=== PATIENT | female | born 1960 | race Caucasian/White ===

== ENCOUNTER 2017-08-27 13:25 | Outpatient (CLI) | payer OTHER | END 2017-08-27 13:26 | disposition home or self-care (01) | LOC: BICRAD 13:25 | PROVIDERS: ATTEND Family Medicine | DX: J44.9 Chronic obstructive pulmonary disease, unspecified (principal); R91.8 Other nonspecific abnormal finding of lung field | CPT/HCPCS: 71046 ==

== ENCOUNTER 2017-12-20 09:09 | Outpatient (CLI) | payer OTHER | END 2017-12-20 09:10 | disposition home or self-care (01) | LOC: BICRAD 09:09 | PROVIDERS: ATTEND Family Medicine | DX: J44.9 Chronic obstructive pulmonary disease, unspecified (principal) | CPT/HCPCS: 71046 ==

== ENCOUNTER 2018-02-14 12:53 | Outpatient (CLI) | payer OTHER ==
--- NOTE | 2018-02-14 13:29 | RAD ---
FRONTAL AND LATERAL IMAGING OF THE CHEST: Date: 02-14-18 Comparison: None. History: Shortness of breath. FINDINGS: The lungs are hyperinflated. There is increased linear interstitial density bilaterally. There is no pneumothorax or pleural fluid and no focal consolidation or alveolar edema. There is a round density measuring 1.5 cm projecting over the lateral aspect of the 11th rib on the r ight. This could represent a nodule within the right lung base or could represent a high density lesi on within the upper abdomen. Recommend CT examination for further assessment. IMPRESSION: 1. Findings suggesting a 1.5 cm round nodular density in the right lung base for which CT is advised. 2. Increased linear interstitial density with pulmonary hyperinflation, suggesting COPD. Code T POS: GLORIA
== END 2018-02-14 12:54 | disposition home or self-care (01) ==
LOC: RAD 12:53
PROVIDERS: ATTEND Internal Medicine Critical Care Medicine
DX: R06.00 Dyspnea, unspecified (principal)
CPT/HCPCS: 71046

== ENCOUNTER 2018-03-19 08:55 | Outpatient (CLI) | payer OTHER ==
--- NOTE | 2018-03-20 15:00 | PFT ---
PATIENT HISTORY: HEIGHT: 63 IN WEIGHT:120 SMOKER: NO HOW LON YRS PACKS PER DAY 1 PRODUCTIVE COUGH: LUNG DISEASE: PHYSICIAN INTERPRETATION FINAL REPORT: There is very severe reduction in expiratory flows and vital capacity without significant improvement after bronchodilator therapy. Total lung capacity is increased. RV is hyperinflated. TLC was hyperexpanded. Gas transfer is at lower limit of normal. IMPRESSION: 1. Obstructive ventilatory impairment. 2. Borderline diffusing capacity. Bleach Boiler Filler: ISHMAEL Hand Quilter: ISHMAEL GRAMAJO
== END 2018-03-19 08:56 | disposition home or self-care (01) ==
LOC: CP 08:55
PROVIDERS: ATTEND Internal Medicine Critical Care Medicine
DX: J44.9 Chronic obstructive pulmonary disease, unspecified (principal)
CPT/HCPCS: 94060; 94727; 94729

== ENCOUNTER 2018-11-19 13:30 | Outpatient (CLI) | payer OTHER, BC ==
--- NOTE | 2018-11-19 13:44 | RAD ---
F2 views chest. HISTORY: Dyspnea. PA and lateral views of the chest was obtained on 11/19/2018. Comparison made to previous exam from 01/19. A small granuloma seen in the right lung base. Areas of emphysematous changes seen in the right upper lobe. No evidence of acute intrathoracic abnormality seen. No evidence of effusions, pneumonia or pneumotho rax seen. IMPRESSION: stable 2 views chest. No evidence of acute intrathoracic abnormalities seen.
== END 2018-11-19 13:31 | disposition home or self-care (01) ==
LOC: RAD 13:30
PROVIDERS: ATTEND Internal Medicine Critical Care Medicine
DX: R06.00 Dyspnea, unspecified (principal)
CPT/HCPCS: 71046

== ENCOUNTER 2019-04-02 08:07 | Outpatient (CLI) | payer OTHER, BC ==
--- NOTE | 2019-04-02 08:25 | RAD ---
EXAM: Two views chest PROVIDED CLINICAL HISTORY: Dyspnea COMPARISON: 11/19/2018 FINDINGS: Cardiac silhouette and pulmonary vasculature are within normal limits. The lungs are hyperinflated w ith emphysematous changes noted greater on the right. Increased linear interstitial densities are seen bilaterally suggesting mild chronic lung changes. No consolidation or pleural fluid is identifie d. There is was thought to be a calcified granuloma overlying the right lung base which is stable. There is been no significant interval change compared to prior exam. IMPRESSION: 1. Chronic lung changes with evidence of COPD. 2. No acute cardiopulmonary process..
== END 2019-04-02 08:08 | disposition home or self-care (01) ==
LOC: RAD 08:07
PROVIDERS: ATTEND Internal Medicine Critical Care Medicine
DX: R06.00 Dyspnea, unspecified (principal); J44.9 Chronic obstructive pulmonary disease, unspecified
CPT/HCPCS: 71046

== ENCOUNTER 2019-10-28 09:23 | Outpatient (CLI) | payer BC, OTHER ==
--- NOTE | 2019-10-28 09:39 | RAD ---
EXAM: Chest PA and lateral: HISTORY: Dyspnea COMPARISON: 04/02/2019 FINDINGS: Heart: Normal cardiac silhouette Aorta: Atherosclerosis of the aortic knob Pulmonary vessels: Normal Costophrenic angles: Costophrenic angles are clear. Lungs: Hyperinflation. No masses or consolidation. Pneumothorax: No pneumothorax Osseous structures: Chronic changes along the superior inferior endplate of the T9 vertebral body. IMPRESSION: No acute cardiopulmonary process.
== END 2019-10-28 09:24 | disposition home or self-care (01) ==
LOC: RAD 09:23
PROVIDERS: ATTEND Internal Medicine Critical Care Medicine
DX: R06.00 Dyspnea, unspecified (principal)
CPT/HCPCS: 71046

== ENCOUNTER 2021-02-02 10:53 | Outpatient (CLI) | payer BC, OTHER | END 2021-02-02 10:54 | disposition home or self-care (01) | LOC: BICRAD 10:53 | PROVIDERS: ATTEND Internal Medicine Critical Care Medicine | DX: R06.00 Dyspnea, unspecified (principal) | CPT/HCPCS: 71046 ==

== ENCOUNTER 2022-02-07 08:39 | Outpatient (CLI) | payer BC, OTHER | END 2022-02-07 08:40 | disposition home or self-care (01) | LOC: RAD 08:39 | PROVIDERS: ATTEND Internal Medicine Critical Care Medicine | DX: R06.00 Dyspnea, unspecified (principal) | CPT/HCPCS: 71046 ==

== ENCOUNTER 2023-04-03 08:52 | Outpatient (CLI) | payer BC, OTHER | END 2023-04-03 08:53 | disposition home or self-care (01) | LOC: RAD 08:52 | PROVIDERS: ATTEND Internal Medicine Critical Care Medicine | DX: R06.00 Dyspnea, unspecified (principal); R91.1 Solitary pulmonary nodule | CPT/HCPCS: 71046 ==

== ENCOUNTER 2024-04-09 08:09 | Outpatient (CLI) | payer BC, OTHER | END 2024-04-09 08:10 | disposition home or self-care (01) | LOC: RAD 08:09 | PROVIDERS: ATTEND Internal Medicine Critical Care Medicine | DX: R06.00 Dyspnea, unspecified (principal); R91.8 Other nonspecific abnormal finding of lung field; J44.9 Chronic obstructive pulmonary disease, unspecified; J98.4 Other disorders of lung | CPT/HCPCS: 71046 ==

== ENCOUNTER 2024-05-21 11:56 | Outpatient (CLI) | payer BC, OTHER | END 2024-05-21 11:57 | disposition home or self-care (01) | LOC: SCSRAD 11:56 | DX: R06.02 Shortness of breath (principal); R91.8 Other nonspecific abnormal finding of lung field | CPT/HCPCS: 71046 ==

== ENCOUNTER 2025-04-06 08:13 | Outpatient (CLI) | payer BC, OTHER | END 2025-04-06 08:14 | disposition home or self-care (01) | LOC: RAD 08:13 | PROVIDERS: ATTEND Internal Medicine Critical Care Medicine | DX: R06.00 Dyspnea, unspecified (principal) | CPT/HCPCS: 71046 ==